=== PATIENT | male | born 1990 | race African-American/Black ===

== ENCOUNTER 2016-10-03 18:09 | Emergency (ER) | payer OTHER ==
[2016-10-03 18:14] VITALS: BMI 25.0
--- NOTE | 2016-10-03 18:15 | PDOC ---
History of Present Illness <Tyrone Jensen - Last Filed: 10/03/16 18:52> - History of Present Illness Initial Comments: 10/03/16 19:02 The patient is a 26 year old male, with a past medical history significant for asthma, who presents to the emergency department with pain to his right ribs s/ p falling onto his right side 4 days ago. He states he was playing basketball when his opponent ran into him while he was jumping to make a shot. He reports falling onto the court floor on his right side. He states he has been experiencing mild pain to his right anterior lateral ribs at rest, which is exacerbated with breathing, moving, and coughing. The patient states he has been having difficulty sleeping at night secondary to pain. He reports taking Tylenol (500 mg BID) since the injury with little to no alleviation. He denies chest pain, cough, shortness of breath, headache and dizziness. He denies fever, chills, nausea, vomit, diarrhea and constipation. Allergies: NKDA Social history: Denies toxic habits <Belkis Hopkins - Last Filed: 10/03/16 19:03> - General Chief Complaint: Pain, Acute Stated Complaint: RIGHT RIB PAIN Time Seen by Provider: 10/03/16 18:15 Past History - Past Medical History Asthma: Yes - Psycho/Social/Smoking Cessation Hx Anxiety: No Suicidal Ideation: No Smoking Status: No Smoking History: Never smoked Number of Cigarettes Smoked Daily: 0 Hx Alcohol Use: No Drug/Substance Use Hx: No Substance Use Type: None <Tyrone Jensen - Last Filed: 10/03/16 18:52> <Belkis Hopkins - Last Filed: 10/03/16 19:03> - Past Medical History Allergies/Adverse Reactions: Allergies Allergy/AdvReac Type Severity Reaction Status Date / Time celery [Celery] Allergy Itching Verified 10/03/16 18:10 APPLES Allergy Itching Uncoded 10/03/16 18:10 BANANAS Allergy Itching Uncoded 10/03/16 18:10 NUTS Allergy Itching Uncoded 10/03/16 18:10 Home Medications: Ambulatory Orders NK [No Known Home Medication] 06/19/15 Review of Systems - Review of Systems Able to Perform ROS?: Yes Comments:: 10/03/16 19:02 CONSTITUTIONAL: No reported: Fever, Chills, Diaphoresis, Generalized Weakness, Malaise, Loss of Appetite HEENT: No reported: Rhinorrhea, Nasal Congestion, Throat Pain, Throat Swelling, Difficulty Swallowing, Mouth Swelling, Ear Pain, Eye Pain, Visual Changes CARDIOVASCULAR: No reported: Chest Pain, Syncope, Palpitations, Irregular Heart Rate, Lightheadedness, Peripheral Edema RESPIRATORY: No reported: Cough, Shortness of Breath, SOB with Exertion, Orthopnea, Wheezing , Stridor, Hemoptysis GASTROINTESTINAL: No reported: Abdominal pain, Abdominal Distension, Nausea, Vomiting, Diarrhea, Constipation, Melena, Hematochezia GENITOURINARY: No reported: Dysuria, Frequency, Urgency, Hesitancy, Flank Pain, Genital Pain MUSCULOSKELETAL: (+) Right rib pain. No reported: Myalgia, Arthralgia, Joint Swelling, Back pain , Neck Pain SKIN: No reported: Rash, Itching, Pallor HEMEATOLOGIC/IMMUNOLOGIC: No reported: Easy Bleeding, Easy Bruising, Lymphadenopathy, Frequent infections ENDOCRINE: No reported: Unexplained Weight Gain, Unexplained Weight Loss, Heat Intolerance , Cold Intolerance NEUROLOGIC: No reported: Headache, Focal Weakness, Paresthesias, Vertigo, Lightheadedness, Unsteady Gait, Seizure, Mental Status Changes, Incontinence <Belkis Hopkins - Last Filed: 10/03/16 19:03> *Physical Exam - Vital Signs Last Vital Signs Temp Pulse Resp BP Pulse Ox 0/0 10/03/16 18:10 <Tyrone Jensen - Last Filed: 10/03/16 18:52> - Vital Signs Last Vital Signs Temp Pulse Resp BP Pulse Ox 98.3 F 61 18 121/78 98 10/03/16 18:10 10/03/16 18:10 10/03/16 18:10 10/03/16 18:10 10/03/16 18:10 - Physical Exam Comments: 10/03/16 19:03 GENERAL: The patient is awake, alert, and fully oriented, Nontoxic - in no acute distress. HEAD: Normocephalic, atraumatic. EYES: extraocular movements intact, sclera anicteric, conjunctiva clear. ENT: Normal voice, Moist mucous membranes. NECK: Normal range of motion, supple LUNGS: Breath sounds equal, clear to auscultation bilaterally. No wheezes, no rhonchi, no rales. HEART: Regular rate and rhythm, without murmur, rub or gallop. ABDOMEN: Soft, nontender, normoactive bowel sounds. No guarding, no rebound.No CVA tenderness EXTREMITIES: Normal range of motion, no edema. No clubbing or cyanosis. No cords, erythema, or tenderness. MUSCULOSKELETAL: (+) Anterolateral right rib tenderness to palpation BACK: No focal mildline or paraspinal tenderness to back NEUROLOGICAL: No facial assymetry, Normal speech, PSYCH: Normal mood, normal affect. SKIN: Warm, Dry, normal turgor, <Belkis Hopkins - Last Filed: 10/03/16 19:03> ED Treatment Course - Medications Given in the ED: ED Medications Discontinued Medications Generic Name Dose Route Start Last Admin Trade Name Freq PRN Reason Stop Dose Admin Ibuprofen 400 mg 10/03/16 18:28 10/03/16 18:48 Motrin - PO 10/03/16 18:29 400 mg ONCE ONE Administration <Belkis Hopkins - Last Filed: 10/03/16 19:03> Medical Decision Making - Medical Decision Making 10/03/16 18:31 26y M no pmhx presents with R rib pain s/p fall 4 days ago while playing basketball. pain with movement, coughing. no sob. onexam pt has mild tenderness in the R flank/ribs. suspect contusion vs fx will obtain xray will give motrin A portion of this note was documented by scribe services under my direction. I have reviewed the details of the note, within reason, and agree with the documentation with the following case summary and management plan written by me 10/03/16 18:52 xrays negative for fracture suspect rib contusion will dc the pt with supportive care I discussed the physical exam findings, ancillary test results and final diagnoses with the patient. I answered all of the patient's questions. The patient was satisfied with the care received and felt comfortable with the discharge plan and treatment plan. The patient will call their primary care physician within 24 hours to arrange follow-up and will return to the Emergency Department with any new, persistent or worsening symptoms. <Tyrone Jensen - Last Filed: 10/03/16 18:52> *DC/Admit/Observation/Transfer - Discharge Dispostion Admit: No <Tyrone Jensen - Last Filed: 10/03/16 18:52> - Attestations Scribe Attestion: 10/03/16 19:03 Documentation prepared by Belkis Hopkins, acting as medical radiation tech for Tyrone Jensen MD, <Belkis Hopkins - Last Filed: 10/03/16 19:03> Diagnosis at time of Disposition: Contusion of rib on right side Qualifiers: Encounter type: initial encounter Qualified Code(s): S20.211A - Contusion of right front wall of thorax, initial encounter - Discharge Dispostion Condition at time of disposition: Stable - Referrals Referrals: [facility] [Provider Group] - Patient Instructions Printed Discharge Instructions: DI for Rib Contusion Additional Instructions: Return to the emergency department immediately with ANY new, persistent or worsening symptoms. You MUST call and follow up with your doctor tomorrow for further evaluation of your symptoms. Results were discussed with you. Please make sure your doctor reviews the results of your emergency evaluation. If you had any xrays during your visit, it was read preliminarily by myself, a Radiologist will review it and if there are any additional findings we will call you.
[2016-10-03 18:18] VITALS: BP 121/78; PULSE 61; TEMP 98.3
[2016-10-03] MEDS ORDERED: IBUPROFEN 400 MG TABLET (FP) PO ONE ×2 (18:28→18:37)
== END 2016-10-03 18:57 | disposition home or self-care (01) ==
LOC: FER 18:09
DX: S20.211A Contusion of right front wall of thorax, initial encounter (principal); W50.0XXA Accidental hit or strike by another person, initial encounter; Y93.67 Activity, basketball; Y92.310 Basketball court as the place of occurrence of the external cause; J45.909 Unspecified asthma, uncomplicated
CPT/HCPCS: 71101-TC-RT; 99281-25

== ENCOUNTER 2016-12-17 | Emergency (ER) | payer OTHER ==
--- NOTE | 2016-12-17 00:05 | PDOC ---
History of Present Illness - General Chief Complaint: Redness To Affected Area Stated Complaint: LUMP IN ARMPIT Time Seen by Provider: 12/17/16 00:05 History Source: Patient - History of Present Illness Initial Comments: 12/17/16 00:40 Pt presents to the ED complaining of a 4 day history of a painful lump under his left armpit. Initially, he thought it was a bug bite, but it became more swollen and painful and he became concerned. Denies fevers, nausea or vomiting. Denies prior history of abscesses. Past History - Past Medical History Allergies/Adverse Reactions: Allergies Allergy/AdvReac Type Severity Reaction Status Date / Time celery [Celery] Allergy Itching Verified 10/03/16 18:10 APPLES Allergy Itching Uncoded 10/03/16 18:10 BANANAS Allergy Itching Uncoded 10/03/16 18:10 NUTS Allergy Itching Uncoded 10/03/16 18:10 Home Medications: Ambulatory Orders Ibuprofen 800 mg PO TID PRN #30 tablet 12/17/16 Sulfamethoxazole/Trimethoprim [Bactrim Ds -] 1 tab PO BID #14 tablet 12/17/16 Asthma: Yes - Psycho/Social/Smoking Cessation Hx Anxiety: No Suicidal Ideation: No Smoking Status: No Smoking History: Never smoked Number of Cigarettes Smoked Daily: 0 Hx Alcohol Use: No Drug/Substance Use Hx: No Substance Use Type: None Review of Systems - Review of Systems Comments:: 12/17/16 00:42 denies other complaints. Is the patient limited Mal[place]ian proficient: No Constitutional: No: Chills, Fever ABD/GI: No: Nausea, Vomiting Integumentary: Yes: Lumps All Other Systems: Reviewed and Negative *Physical Exam - Physical Exam Comments: 12/17/16 00:43 Gen: alert, NAD Skin: + 2 cm area of erythema and induration of left axilla. Minimal surrounding erythema. No active drainage. Procedures - Incision and Drainage I&D Site: Left: Axilla (2 cm abscess) Betadine cleansed: Yes Anesthesia: 2% Lidocaine Volume(ml): 2 Blade Size: 10 Attempts: 1 Iodinated Packin/2 in Plain Packing: Yes Complications: none Dressing: Yes Medical Decision Making - Medical Decision Making 12/17/16 00:46 pt presents to the ED complaining of isolated abscess to the left axilla without fever. I and D performed in the ED. Will discharge home with rx for bactrim. *DC/Admit/Observation/Transfer Diagnosis at time of Disposition: Abscess - Discharge Dispostion Condition at time of disposition: Stable Admit: No - Prescriptions Prescriptions: Sulfamethoxazole/Trimethoprim [Bactrim Ds -] 1 tab PO BID #14 tablet Ibuprofen 800 mg PO TID PRN #30 tablet PRN Reason: Pain - Referrals Referrals: Marcel Solitario MD [Primary Care Provider] - - Patient Instructions Printed Discharge Instructions: DI for Skin Abscess Additional Instructions: return to the Ed in two days for packing removal. Return for fever, spreading redness or swelling, severe pain. Take the antibiotic until it is all gone.
[2016-12-17 00:06] VITALS: BP 115/75; PULSE 65; TEMP 98.1; BMI 24.8
[2016-12-17] MEDS ORDERED: LIDOCAINE HCL 2% (50ML VIAL) INF ONE (00:15)
[2016-12-17] MEDS ORDERED: LIDOCAINE HCL 2% (20ML MULTI-DOSE VIAL) NR ONE (00:16)
[2016-12-17] MEDS ORDERED: IBUPROFEN 400 MG TABLET (FP) PO ONE ×2 (00:35→00:40)
== END 2016-12-17 00:46 | disposition home or self-care (01) ==
LOC: FER
PROC: 0H9CXZZ Drainage of Left Upper Arm Skin, External Approach (ICD-10-PCS; principal; 2016-12-17)
DX: L02.412 Cutaneous abscess of left axilla (principal)
CPT/HCPCS: 10060; 99281-25

== ENCOUNTER 2017-06-12 13:35 | Emergency (ER) | payer OTHER ==
[2017-06-12] MEDS ORDERED: TETRACAINE 0.5% OPHTH SOLN 2 ML BOTTLE ONE (13:53)
[2017-06-12] MEDS ORDERED: FLUORESCEIN NA 1 EA STRIP ONE (13:53)
--- NOTE | 2017-06-12 14:00 | PDOC ---
History of Present Illness - General Chief Complaint: Eye Problem Stated Complaint: RT EYE REDNESS Time Seen by Provider: 06/12/17 13:38 History Source: Patient Exam Limitations: No Limitations - History of Present Illness Initial Comments: 27 yo M presents with R eye redness after removing his contact lens yesterday. He states that he has extended wear contacts, but wore them for a week beyond the usual month. He states that he removed them after going to the gym, noticed that the right eye was itchy, rubbed it vigorously multiple times. Denies fever , drainage, crusting. He states that there is swelling that protrudes from his eyelid. Past History - Past Medical History Allergies/Adverse Reactions: Allergies Allergy/AdvReac Type Severity Reaction Status Date / Time celery [Celery] Allergy Itching Verified 06/12/17 13:37 APPLES Allergy Itching Uncoded 06/12/17 13:37 BANANAS Allergy Itching Uncoded 06/12/17 13:37 NUTS Allergy Itching Uncoded 06/12/17 13:37 Home Medications: Ambulatory Orders Moxifloxacin HCl [Vigamox 0.5% -] 1 - 2 drop OD ASDIR #1 bottle 06/12/17 Ocular Lubricant Ophth Oint [Lacri-Lube Eye Ointment -] 1 applic OD BID #1 tube 06/12/17 Asthma: Yes - Suicide/Smoking/Psychosocial Hx Smoking Status: No Smoking History: Never smoked Number of Cigarettes Smoked Daily: 0 Hx Alcohol Use: No Drug/Substance Use Hx: No Substance Use Type: None Review of Systems - Review of Systems Able to Perform ROS?: Yes Comments:: GENERAL/CONSTITUTIONAL: No fever or chills. No weakness. HEAD, EYES, EARS, NOSE AND THROAT: No change in vision. No ear pain or discharge. No sore throat. +R eye redness and irritation. SKIN: No rash NEUROLOGIC: No headache, vertigo, loss of consciousness, or change in strength/ sensation. ENDOCRINE: No increased thirst. No abnormal weight change. HEMATOLOGIC/LYMPHATIC: No anemia, easy bleeding, or history of blood clots. ALLERGIC/IMMUNOLOGIC: No hives or skin allergy. *Physical Exam - Physical Exam Comments: GENERAL: Awake, alert, and fully oriented, in no acute distress HEAD: No signs of trauma EYES: R eye with conjunctival injection, chemosis to the lateral conjunctiva. PERRLA, EOMI, sclera anicteric. L conjunctiva normal in appearance. Fluorescein stain of R eye shows no abnormal uptake. ENT: Auricles normal inspection, hearing grossly normal, nares patent, oropharynx clear without exudates. Moist mucosa NECK: Normal ROM, supple, no lymphadenopathy, JVD, or masses NEUROLOGICAL: Cranial nerves II through XII grossly intact. Normal speech, normal gait SKIN: Warm, Dry, normal turgor, no rashes or lesions noted. *DC/Admit/Observation/Transfer Diagnosis at time of Disposition: Conjunctivitis Qualifiers: Conjunctivitis type: acute Acute conjunctivitis type: unspecified Laterality: right Qualified Code(s): H10.31 - Unspecified acute conjunctivitis, right eye Chemosis of conjunctiva Qualifiers: Laterality: right Qualified Code(s): H11.421 - Conjunctival edema, right eye - Discharge Dispostion Disposition: HOME Condition at time of disposition: Stable Admit: No - Prescriptions Prescriptions: Moxifloxacin HCl [Vigamox 0.5% -] 1 - 2 drop OD ASDIR #1 bottle Ocular Lubricant Ophth Oint [Lacri-Lube Eye Ointment -] 1 applic OD BID #1 tube - Referrals - Patient Instructions Printed Discharge Instructions: DI for Conjunctivitis Additional Instructions: Vigamox drops as directed for next 7 days. DO NOT wear contacts for 2 weeks. DO NOT wear contacts longer than directed. Lacrilube can be applied to the inner surface of the lower lid if you have having dryness in your eye associated with the swelling. - Post Discharge Activity
[2017-06-12 14:24] VITALS: BP 139/87; PULSE 69; TEMP 98.2; BMI 25.0
== END 2017-06-12 14:25 | disposition home or self-care (01) ==
LOC: FER 13:35
DX: H10.31 Unspecified acute conjunctivitis, right eye (principal); H11.421 Conjunctival edema, right eye
CPT/HCPCS: 99281-25

== ENCOUNTER 2023-04-17 11:18 | Emergency (ER) | payer BC, OTHER ==
[2023-04-17] MEDS ORDERED: morphine CARPU-JECT 4 MG/1 ML DISP.SYRIN IVPUSH ONE (11:36)
[2023-04-17] MEDS ORDERED: diazePAM CARPU-JECT 10 MG/2 ML DISP.SYRIN IVPUSH ONE (11:36)
[2023-04-17] MEDS ORDERED: diazePAM CARPU-JECT 10 MG/2 ML DISP.SYRIN ONE (11:46)
[2023-04-17] MEDS ORDERED: morphine SULFATE 4 MG/ML VIAL ONE (11:46)
[2023-04-17 11:47] VITALS: BP 155/107; PULSE 67; RESP 15; TEMP 98.4; BMI 26.4
[2023-04-17] MEDS ORDERED: KETAMINE HCL 200 MG/20 ML VIAL IVPUSH ONE (13:04)
[2023-04-17] MEDS ORDERED: KETAMINE HCL 200 MG/20 ML VIAL ONE (13:24)
== END 2023-04-17 16:49 | disposition home or self-care (01) ==
LOC: FER 11:18
PROC: 0RSJXZZ Reposition Right Shoulder Joint, External Approach (ICD-10-PCS; principal; 2023-04-17)
PROC: 3E033NZ Introduction of Analgesics, Hypnotics, Sedatives into Peripheral Vein, Percutaneous Approach (ICD-10-PCS; 2023-04-17)
PROC: 3E033GC Introduction of Other Therapeutic Substance into Peripheral Vein, Percutaneous Approach (ICD-10-PCS; 2023-04-17)
PROC: 3E033GC Introduction of Other Therapeutic Substance into Peripheral Vein, Percutaneous Approach (ICD-10-PCS; 2023-04-17)
DX: S43.004A Unspecified dislocation of right shoulder joint, initial encounter (principal); X58.XXXA Exposure to other specified factors, initial encounter; Y92.9 Unspecified place or not applicable
CPT/HCPCS: 73030-TC-RT-FY; 99291

== ENCOUNTER 2025-01-02 20:31 | Emergency (ER) | payer OTHER ==
[2025-01-02 21:34] VITALS: BP 152/100; PULSE 61; RESP 16; TEMP 97.7; BMI 27.1
[2025-01-02] MEDS ORDERED: FAMOTIDINE 20 MG/50 ML IVPB 20 MG/50 ML MG IVPB ONE (21:42)
[2025-01-02] MEDS ORDERED: ACETAMINOPHEN INJECTION 100 ML ONE (21:42)
[2025-01-02] MEDS ORDERED: MAG HYDROX/AL HYDROX/SIMETH 30 ML UNIT-DOSE CUP ONE (21:42)
[2025-01-02] MEDS ORDERED: METOCLOPRAMIDE HCL INJECTION 10 MG/2 ML VIAL ONE (21:42)
[2025-01-02] MEDS ORDERED: MECLIZINE HCL 25 MG TABLET (FP) ONE (21:42)
[2025-01-02] MEDS: FAMOTIDINE 20 MG TABLET PO ONE (21:45)
[2025-01-02] MEDS: METOCLOPRAMIDE HCL INJECTION 10 MG/2 ML VIAL IVPB ONE (21:45)
[2025-01-02] MEDS: MECLIZINE HCL 25 MG TABLET (FP) PO ONE (21:45)
[2025-01-02] MEDS: SODIUM CHLORIDE 0.9% 1000 ML INFUS.BAG IV ONE (21:45)
[2025-01-02] MEDS: ACETAMINOPHEN 1000 MG/100 ML BAG IVPB ONE (21:45)
[2025-01-02] MEDS: MAG HYDROX/AL HYDROX/SIMETH 30 ML UNIT-DOSE CUP PO ONE (21:45)
[2025-01-02 22:03] LABS: ABSOLUTE IMMATURE GRANULOCYTES 0.00 x10^3/uL (0.0-0.031); BASOPHILS # 0.05 x10^3/uL (0.01-0.08); EOSINOPHIL % 0.7 % (0.8-7.0); EOSINOPHILS # 0.05 x10^3/uL (0.04-0.54); MCHC 33.5 g/dl (32.3-36.5); MEAN CELL VOLUME 92.4 fl (79.0-92.2); MEAN PLT VOLUME 10.5 fl (9.4-12.4); MONOCYTE # 0.53 x10^3/uL (0.30-0.82); MONOCYTE % 7.7 % (5.3-12.2); RDW 12.4 % (12.0-15.6)
[2025-01-02 22:25] LABS: ALK PHOS 63 U/L (45-117); CO2 27 mmol/L (21-32); CREATININE 1.0 mg/dl (0.6-1.3); GLUCOSE,RANDOM 90 mg/dl (74-106); SGOT/AST 20 U/L (15-37); SGPT/ALT 22 U/L (7-52); TOT PROT 7.0 g/dl (6.4-8.2)
[2025-01-02 23:55] LABS: HCV DIAGNOSTIC IN-HOUSE W/RFLX NON-REACTIVE (NONREACTIVE); HIV INTERPRETATION NEGATIVE (NEGATIVE)
== END 2025-01-02 23:44 | disposition home or self-care (01) ==
LOC: FER 20:31
PROC: 3E033NZ Introduction of Analgesics, Hypnotics, Sedatives into Peripheral Vein, Percutaneous Approach (ICD-10-PCS; principal; 2025-01-02)
PROC: 3E033GC Introduction of Other Therapeutic Substance into Peripheral Vein, Percutaneous Approach (ICD-10-PCS; 2025-01-02)
DX: R42 Dizziness and giddiness (principal); R11.2 Nausea with vomiting, unspecified; R07.9 Chest pain, unspecified
CPT/HCPCS: 36415; 70450-TC; 71046-TC-FY; 80053; 84484; 85025; 86803; 87389; 87637-QW; 93005; 99285-25